=== PATIENT | male | born 1985 | race African-American/Black ===

== ENCOUNTER 2017-04-10 04:26 | Emergency (ER) | payer SELFPAY ==
[2017-04-10 05:26] LABS: BASOPHILS 0.2 % (0-2); EOSINOPHILS 3.1 % (0-7); HEMATOCRIT 41.1 % (42.0-54.0); HEMOGLOBIN 13.5 g/dL (13.5-17.5); IMMATURE GRANULOCYTES 0.2 % (0-5); LYMPHOCYTES 31.3 % (15-50); MCH 27.4 pg (26.0-34.0); MCHC 32.8 g/dL (31.0-37.0); MCV 83.4 fL (80.0-100.0); MEAN PLATELET VOLUME 9.1 fL (7.4-10.4); MONOCYTES 7.3 % (2-11); NEUTROPHILS 57.9 % (40-80); PLATELET COUNT 262 10x3/uL (130-400); RBC 4.93 10x6/uL (4.20-6.10); RDW 14.5 % (11.5-14.5); WBC 5.5 10x3/uL (4.8-10.8)
[2017-04-10 05:38] LABS: ALBUMIN 3.8 g/dL (3.4-5.0); ANION GAP 13.8 mmol/L (8-16); BILIRUBIN - TOTAL 0.22 mg/dL (0.2-1.3); CALCIUM 9.4 mg/dL (8.5-10.1); CARBON DIOXIDE 24.9 mmol/L (21.0-32.0); CREATININE - SERUM 1.3 mg/dL (0.6-1.3); POTASSIUM - SERUM 3.7 mmol/L (3.5-5.1); PROTEIN - SERUM 7.4 g/dL (6.4-8.2)
== END 2017-04-10 06:00 | disposition home or self-care (01) ==
LOC: D.ER 04:26
PROVIDERS: Emergency Medicine
DX: E11.65 Type 2 diabetes mellitus with hyperglycemia (principal); F17.200 Nicotine dependence, unspecified, uncomplicated

== ENCOUNTER 2017-09-12 02:53 | Emergency (ER) | payer MEDICAID ==
[2017-09-12 03:22] LABS: BASOPHILS 0.2 % (0-2); HEMATOCRIT 43.4 % (42.0-54.0); HEMOGLOBIN 14.4 g/dL (13.5-17.5); IMMATURE GRANULOCYTES 0.2 % (0-5); LYMPHOCYTES 31.1 % (15-50); MCH 27.2 pg (26.0-34.0); MCHC 33.2 g/dL (31.0-37.0); MEAN PLATELET VOLUME 9.1 fL (7.4-10.4); MONOCYTES 9.4 % (2-11); NEUTROPHILS 54.1 % (40-80); PLATELET COUNT 322 10x3/uL (130-400); RBC 5.29 10x6/uL (4.20-6.10); RDW 14.9 % (11.5-14.5)
[2017-09-12 03:26] LABS: APPEARANCE CLEAR (CLEAR); COLOR YELLOW (YELLOW); NITRITE NEGATIVE (NEGATIVE); SPECIFIC GRAVITY 1.025 (1.005-1.020)
[2017-09-12 03:27] LABS: BILIRUBIN NEGATIVE (NEGATIVE); GLUCOSE NEGATIVE (NEGATIVE); KETONE NEGATIVE (NEGATIVE); PROTEIN NEGATIVE (NEGATIVE); UROBILINOGEN NORMAL (NORMAL)
[2017-09-12 03:28] LABS: BACTERIA FEW /hpf (NONE SEEN); EPITHELIAL CELLS 0-5 /hpf (0-5); RED CELLS - URINE 0-5 /hpf (0-5); WHITE CELLS - URINE NSEEN /hpf (0-5)
[2017-09-12 03:58] LABS: ALBUMIN 3.7 g/dL (3.4-5.0); ALKALINE PHOSPHATASE 90 U/L (46-116); ALT (SGPT) 32 U/L (10-68); BILIRUBIN - TOTAL 0.12 mg/dL (0.2-1.3); CALC OSMOLALITY 274 mosm/kg (275-300); CALCIUM 8.9 mg/dL (8.5-10.1); CARBON DIOXIDE 26.2 mmol/L (21.0-32.0); CHLORIDE - SERUM 101 mmol/L (98-107); CREATININE - SERUM 1.1 mg/dL (0.6-1.3); GLUCOSE 112 mg/dL (74-106); LIPASE 287 U/L (73-393); PROTEIN - SERUM 7.3 g/dL (6.4-8.2); SODIUM 136 mmol/L (136-145); UREA NITROGEN 18 mg/dL (7-18); eGFR NON AFRICAN AMERICAN 83 mL/min (90-120)
== END 2017-09-12 06:44 | disposition home or self-care (01) ==
LOC: D.ER 02:53
PROVIDERS: Emergency Medicine
DX: R10.9 Unspecified abdominal pain (principal); E11.9 Type 2 diabetes mellitus without complications

== ENCOUNTER 2017-09-17 08:38 | Emergency (ER) | payer MEDICAID ==
[2017-09-17 09:52] LABS: APPEARANCE CLEAR (CLEAR); BACTERIA FEW /hpf (NONE SEEN); BILIRUBIN NEGATIVE (NEGATIVE); COLOR YELLOW (YELLOW); EPITHELIAL CELLS OCC /hpf (0-5); GLUCOSE NEGATIVE (NEGATIVE); KETONE NEGATIVE (NEGATIVE); MUCUS <1+ /lpf (NONE SEEN); NITRITE NEGATIVE (NEGATIVE); PROTEIN NEGATIVE (NEGATIVE); RED CELLS - URINE 0-5 /hpf (0-5); UROBILINOGEN NORMAL (NORMAL); WHITE CELLS - URINE OCC /hpf (0-5)
[2017-09-17 10:01] LABS: BASOPHILS 0.2 % (0-2); EOSINOPHILS 2.9 % (0-7); HEMATOCRIT 42.9 % (42.0-54.0); HEMOGLOBIN 14.1 g/dL (13.5-17.5); IMMATURE GRANULOCYTES 0.2 % (0-5); MCH 27.3 pg (26.0-34.0); MCHC 32.9 g/dL (31.0-37.0); MCV 83.1 fL (80.0-100.0); MEAN PLATELET VOLUME 9.4 fL (7.4-10.4); MONOCYTES 14.3 % (2-11); NEUTROPHILS 52.4 % (40-80); PLATELET COUNT 244 10x3/uL (130-400); RBC 5.16 10x6/uL (4.20-6.10); RDW 14.9 % (11.5-14.5); WBC 4.1 10x3/uL (4.8-10.8)
[2017-09-17 10:15] LABS: ALBUMIN 3.7 g/dL (3.4-5.0); ALKALINE PHOSPHATASE 96 U/L (46-116); ALT (SGPT) 35 U/L (10-68); CALC OSMOLALITY 274 mosm/kg (275-300); CALCIUM 8.7 mg/dL (8.5-10.1); CARBON DIOXIDE 23.9 mmol/L (21.0-32.0); CHLORIDE - SERUM 103 mmol/L (98-107); GLUCOSE 94 mg/dL (74-106); POTASSIUM - SERUM 4.4 mmol/L (3.5-5.1); PROTEIN - SERUM 6.8 g/dL (6.4-8.2); SODIUM 137 mmol/L (136-145); UREA NITROGEN 16 mg/dL (7-18); eGFR NON AFRICAN AMERICAN > 90 mL/min (90-120)
== END 2017-09-17 10:58 | disposition home or self-care (01) ==
LOC: D.ER 08:38
PROVIDERS: Family Medicine
DX: I10 Essential (primary) hypertension (principal); E11.9 Type 2 diabetes mellitus without complications

== ENCOUNTER 2018-06-15 02:33 | Inpatient (IN) | payer MEDICAID ==
[~2018-06-15] VITALS: Ht 167.6 cm; Wt 81.6 kg
[2018-06-15 03:08] LABS: BASOPHILS 0.4 % (0-2); EOSINOPHILS 6.3 % (0-7); HEMATOCRIT 39.4 % (42.0-54.0); HEMOGLOBIN 13.1 g/dL (13.5-17.5); IMMATURE GRANULOCYTES 0.2 % (0-5); LYMPHOCYTES 44.1 % (15-50); MCH 27.5 pg (26.0-34.0); MCHC 33.2 g/dL (31.0-37.0); MCV 82.8 fL (80.0-100.0); MONOCYTES 8.5 % (2-11); NEUTROPHILS 40.5 % (40-80); PLATELET COUNT 259 10x3/uL (130-400); RBC 4.76 10x6/uL (4.20-6.10); RDW 14.8 % (11.5-14.5); WBC 5.6 10x3/uL (4.8-10.8)
[2018-06-15 03:22] LABS: ALBUMIN 3.3 g/dL (3.4-5.0); ANION GAP 7.6 mmol/L (8-16); BILIRUBIN - TOTAL 0.16 mg/dL (0.2-1.3); CALCIUM 8.2 mg/dL (8.5-10.1); CARBON DIOXIDE 28.6 mmol/L (21.0-32.0); CREATININE - SERUM 1.3 mg/dL (0.6-1.3); POTASSIUM - SERUM 4.2 mmol/L (3.5-5.1); PROTEIN - SERUM 6.5 g/dL (6.4-8.2)
[2018-06-15 03:48] LABS: COLOR YELLOW (YELLOW)
[2018-06-15 03:49] LABS: APPEARANCE CLEAR (CLEAR); BILIRUBIN NEGATIVE (NEGATIVE); GLUCOSE NEGATIVE (NEGATIVE); KETONE SMALL mg/dL (NEGATIVE); NITRITE NEGATIVE (NEGATIVE); PROTEIN NEGATIVE (NEGATIVE); UROBILINOGEN NORMAL (NORMAL)
[2018-06-15 03:53] LABS: UDS - AMPHET POSITIVE QUAL (NEGATIVE); UDS - BARB NEGATIVE QUAL (NEGATIVE); UDS - BENZO NEGATIVE QUAL (NEGATIVE); UDS - COCAINE POSITIVE QUAL (NEGATIVE); UDS - OPIATE POSITIVE QUAL (NEGATIVE); UDS - PCP NEGATIVE QUAL (NEGATIVE); UDS - THC POSITIVE QUAL (NEGATIVE)
[2018-06-15 04:00] VITALS: BP 129/69
[2018-06-15 05:15] VITALS: BP 104/75; BMI 29.1
[2018-06-15 05:30] VITALS: BP 104/75
[2018-06-15 08:46] VITALS: BP 111/54
[2018-06-15 12:20] VITALS: BMI 29.0
[2018-06-15 16:38] VITALS: BP 127/72
[2018-06-15 20:00] VITALS: BP 115/72
[2018-06-16] VITALS: BP 125/60
[2018-06-16 04:17] VITALS: BP 104/47
[2018-06-16 05:04] LABS: BASOPHILS 0.2 % (0-2); EOSINOPHILS 6.7 % (0-7); HEMATOCRIT 39.9 % (42.0-54.0); HEMOGLOBIN 13.2 g/dL (13.5-17.5); IMMATURE GRANULOCYTES 0.2 % (0-5); LYMPHOCYTES 42.6 % (15-50); MCH 27.3 pg (26.0-34.0); MCHC 33.1 g/dL (31.0-37.0); MCV 82.6 fL (80.0-100.0); MEAN PLATELET VOLUME 9.3 fL (7.4-10.4); MONOCYTES 8.3 % (2-11); PLATELET COUNT 301 10x3/uL (130-400); RBC 4.83 10x6/uL (4.20-6.10); RDW 14.7 % (11.5-14.5); WBC 5.1 10x3/uL (4.8-10.8)
[2018-06-16 05:32] LABS: ALBUMIN 2.8 g/dL (3.4-5.0); ALKALINE PHOSPHATASE 81 U/L (46-116); BILIRUBIN - TOTAL 0.12 mg/dL (0.2-1.3); CALCIUM 7.6 mg/dL (8.5-10.1); CARBON DIOXIDE 26.2 mmol/L (21.0-32.0); CHLORIDE - SERUM 108 mmol/L (98-107); CHOLESTEROL, TOTAL 104 mg/dL (0-200); CREATININE - SERUM 1.2 mg/dL (0.6-1.3); GLUCOSE 127 mg/dL (74-106); HDL CHOLESTEROL 35 mg/dL (32-96); LDL CHOLESTEROL 38 mg/dL (0-100); LDL-HDL RATIO 1.1 ratio (1.5-3.5); LIPASE 268 U/L (73-393); POTASSIUM - SERUM 3.9 mmol/L (3.5-5.1); PROTEIN - SERUM 5.6 g/dL (6.4-8.2); SODIUM 140 mmol/L (136-145); TRIGLYCERIDE 155 mg/dL (30-200); eGFR NON AFRICAN AMERICAN 75 mL/min (90-120)
[2018-06-16 05:36] LABS: ALT (SGPT) 77 U/L (10-68); AMYLASE - SERUM 58 U/L (25-115); CALC OSMOLALITY 279 mosm/kg (275-300); UREA NITROGEN 9 mg/dL (7-18)
[2018-06-16 20:00] VITALS: BP 127/84
[2018-06-17 05:21] LABS: ALBUMIN 3.1 g/dL (3.4-5.0); ALKALINE PHOSPHATASE 84 U/L (46-116); ALT (SGPT) 70 U/L (10-68); BILIRUBIN - TOTAL 0.11 mg/dL (0.2-1.3); CALC OSMOLALITY 278 mosm/kg (275-300); CALCIUM 8.1 mg/dL (8.5-10.1); CARBON DIOXIDE 29.5 mmol/L (21.0-32.0); CHLORIDE - SERUM 106 mmol/L (98-107); CREATININE - SERUM 1.1 mg/dL (0.6-1.3); GLUCOSE 111 mg/dL (74-106); LIPASE 602 U/L (73-393); POTASSIUM - SERUM 4.4 mmol/L (3.5-5.1); PROTEIN - SERUM 5.9 g/dL (6.4-8.2); SODIUM 140 mmol/L (136-145); UREA NITROGEN 11 mg/dL (7-18); eGFR NON AFRICAN AMERICAN 83 mL/min (90-120)
[2018-06-17 05:22] LABS: AMYLASE - SERUM 74 U/L (25-115); BASOPHILS 0.4 % (0-2); EOSINOPHILS 7.7 % (0-7); HEMOGLOBIN 13.7 g/dL (13.5-17.5); IMMATURE GRANULOCYTES 0.2 % (0-5); LYMPHOCYTES 39.9 % (15-50); MCH 27.6 pg (26.0-34.0); MCHC 33.4 g/dL (31.0-37.0); MCV 82.5 fL (80.0-100.0); MEAN PLATELET VOLUME 9.5 fL (7.4-10.4); MONOCYTES 7.6 % (2-11); NEUTROPHILS 44.2 % (40-80); PLATELET COUNT 304 10x3/uL (130-400); RBC 4.97 10x6/uL (4.20-6.10); RDW 14.6 % (11.5-14.5); WBC 5.4 10x3/uL (4.8-10.8)
[2018-06-17 05:28] VITALS: BP 130/87
[2018-06-17 09:21] VITALS: BP 118/69
[2018-06-17 11:57] VITALS: BP 112/53
[2018-06-17 17:49] VITALS: BP 130/76
[2018-06-17 18:00] VITALS: Ht 167.6 cm; Wt 81.6 kg
[2018-06-17 20:00] VITALS: BP 136/69
[2018-06-18] VITALS (9 sets, daily range): BP systolic 125–147; BP diastolic 62–85
[2018-06-18 06:39] LABS: BASOPHILS 0.2 % (0-2); EOSINOPHILS 8.5 % (0-7); HEMATOCRIT 44.6 % (42.0-54.0); HEMOGLOBIN 14.8 g/dL (13.5-17.5); IMMATURE GRANULOCYTES 0.2 % (0-5); LYMPHOCYTES 40.2 % (15-50); MCH 27.4 pg (26.0-34.0); MCHC 33.2 g/dL (31.0-37.0); MCV 82.6 fL (80.0-100.0); MEAN PLATELET VOLUME 9.3 fL (7.4-10.4); MONOCYTES 6.8 % (2-11); NEUTROPHILS 44.1 % (40-80); PLATELET COUNT 298 10x3/uL (130-400); RDW 14.9 % (11.5-14.5)
[2018-06-18 07:03] LABS: ALBUMIN 3.2 g/dL (3.4-5.0); ALKALINE PHOSPHATASE 86 U/L (46-116); ALT (SGPT) 56 U/L (10-68); AMYLASE - SERUM 74 U/L (25-115); BILIRUBIN - TOTAL 0.12 mg/dL (0.2-1.3); CALC OSMOLALITY 277 mosm/kg (275-300); CALCIUM 8.3 mg/dL (8.5-10.1); CARBON DIOXIDE 27.2 mmol/L (21.0-32.0); CHLORIDE - SERUM 102 mmol/L (98-107); CREATININE - SERUM 1.2 mg/dL (0.6-1.3); GLUCOSE 102 mg/dL (74-106); LIPASE 300 U/L (73-393); POTASSIUM - SERUM 4.1 mmol/L (3.5-5.1); PROTEIN - SERUM 6.7 g/dL (6.4-8.2); SODIUM 139 mmol/L (136-145); UREA NITROGEN 12 mg/dL (7-18); eGFR NON AFRICAN AMERICAN 75 mL/min (90-120)
[2018-06-18] MEDS ORDERED: HYDROCODON-ACE1 EAC7 PO (13:37)
[2018-06-18] MEDS ORDERED: PROTONIX40 MG PO (13:44)
[2018-06-19] VITALS: BP 137/69
[2018-06-19 04:00] VITALS: BP 129/62
[2018-06-19 07:12] LABS: BASOPHILS 0.1 % (0-2); EOSINOPHILS 0.2 % (0-7); HEMATOCRIT 43.2 % (42.0-54.0); HEMOGLOBIN 14.5 g/dL (13.5-17.5); IMMATURE GRANULOCYTES 0.3 % (0-5); LYMPHOCYTES 16.2 % (15-50); MCH 27.4 pg (26.0-34.0); MCHC 33.6 g/dL (31.0-37.0); MCV 81.5 fL (80.0-100.0); MEAN PLATELET VOLUME 9.5 fL (7.4-10.4); MONOCYTES 6.7 % (2-11); NEUTROPHILS 76.5 % (40-80); PLATELET COUNT 288 10x3/uL (130-400); RDW 14.8 % (11.5-14.5)
[2018-06-19 07:18] LABS: WBC 9.1 10x3/uL (4.8-10.8)
[2018-06-19 07:41] LABS: ALBUMIN 3.2 g/dL (3.4-5.0); ALKALINE PHOSPHATASE 103 U/L (46-116); AMYLASE - SERUM 59 U/L (25-115); CALC OSMOLALITY 273 mosm/kg (275-300); CALCIUM 8.2 mg/dL (8.5-10.1); CARBON DIOXIDE 28.2 mmol/L (21.0-32.0); CHLORIDE - SERUM 103 mmol/L (98-107); CREATININE - SERUM 1.2 mg/dL (0.6-1.3); GLUCOSE 118 mg/dL (74-106); LIPASE 162 U/L (73-393); POTASSIUM - SERUM 3.9 mmol/L (3.5-5.1); PROTEIN - SERUM 6.5 g/dL (6.4-8.2); SODIUM 137 mmol/L (136-145); UREA NITROGEN 11 mg/dL (7-18); eGFR NON AFRICAN AMERICAN 75 mL/min (90-120)
[2018-06-19 07:43] LABS: ALT (SGPT) 206 U/L (10-68)
[2018-06-19 09:56] VITALS: BP 155/86
== END 2018-06-19 12:00 | disposition home or self-care (01) | DRG 418 ==
LOC: D.ER 02:33 → D.EDHOLD 03:58 → D.MS 03:58
PROVIDERS: Emergency Medicine; Family Medicine; Surgery
PROC: BF121ZZ Fluoroscopy of Gallbladder using Low Osmolar Contrast (ICD-10-PCS; 2018-06-18)
PROC: 0FT44ZZ Resection of Gallbladder, Percutaneous Endoscopic Approach (ICD-10-PCS; principal; 2018-06-18 10:15)
DX: K80.10 Calculus of gallbladder with chronic cholecystitis without obstruction (principal); F17.203 Nicotine dependence unspecified, with withdrawal; K21.9 Gastro-esophageal reflux disease without esophagitis; E86.0 Dehydration; F19.10 Other psychoactive substance abuse, uncomplicated

== ENCOUNTER 2019-03-24 07:14 | Observation (INO) | payer MEDICAID ==
[~2019-03-24] VITALS: Ht 167.6 cm; Wt 81.6 kg
[~2019-03-24 07:14] MED LIST: HYDROCODON-ACE1 EAC7 PO; PROTONIX40 MG PO
--- NOTE | 2019-03-24 07:45 | NUR ---
PT GIVEN SPECIMEN CUP AND ASKED TO PROVIDE URINE SAMPLE FOR ORDERED LABS. PT VOICED UNDERSTANDING.
[2019-03-24 08:00] VITALS: BP 113/71
--- NOTE | 2019-03-24 08:13 | NUR ---
BLANKET PROVIDED FOR PT'S COMFORT. PT DENIES FURTHER NEEDS AT THIS TIME. WILL CONTINUE TO MONITOR.
[2019-03-24 08:17] LABS: BASOPHILS 0.3 % (0-2); HEMATOCRIT 42.1 % (42.0-54.0); HEMOGLOBIN 14.2 g/dL (13.5-17.5); IMMATURE GRANULOCYTES 0.2 % (0-5); LYMPHOCYTES 30.2 % (15-50); MCH 27.5 pg (26.0-34.0); MCHC 33.7 g/dL (31.0-37.0); MCV 81.4 fL (80.0-100.0); MEAN PLATELET VOLUME 9.1 fL (7.4-10.4); NEUTROPHILS 56.3 % (40-80); PLATELET COUNT 275 10x3/uL (130-400); RBC 5.17 10x6/uL (4.20-6.10)
[2019-03-24 08:30] LABS: ALBUMIN 3.3 g/dL (3.4-5.0); ANION GAP 13.4 mmol/L (8-16); BILIRUBIN - TOTAL 0.15 mg/dL (0.2-1.3); CALCIUM 8.5 mg/dL (8.5-10.1); CARBON DIOXIDE 24.9 mmol/L (21.0-32.0); CREATININE - SERUM 1.2 mg/dL (0.6-1.3); POTASSIUM - SERUM 4.3 mmol/L (3.5-5.1); PROTEIN - SERUM 6.6 g/dL (6.4-8.2)
[2019-03-24 08:36] LABS: TROPONIN-I 0.026 ng/mL (0.000-0.060)
--- NOTE | 2019-03-24 08:44 | NUR ---
PT LYING IN BED, RESPIRATIONS EVEN AND UNLABORED. NO SIGNS OF DISTRES. FAMILY MEMBER AT THE BEDSIDE. PT DENIES ANY IMPROVMENT OF SYMPTOMS FOLLOWING ORDERED MEDICATION. EDP NOTIFIED.
--- NOTE | 2019-03-24 09:42 | NUR ---
PT STATES THAT PAIN REMAINS 8/10, HOWEVER FOLLOWING ADMINISTERED MORPHINE, PT'S INTERMITTENT PAIN, HAS BECOME MORE FREQUENT.
--- NOTE | 2019-03-24 09:55 | NUR ---
PT TAKEN TO [facility] FOR ORDERED CT SCAN. TRANSPORTED VIA STRETCHER.
[2019-03-24 09:57] LABS: APPEARANCE CLEAR (CLEAR); COLOR STRAW (YELLOW)
[2019-03-24 09:58] LABS: BILIRUBIN NEGATIVE (NEGATIVE); GLUCOSE NEGATIVE (NEGATIVE); KETONE NEGATIVE (NEGATIVE); NITRITE NEGATIVE (NEGATIVE); PROTEIN NEGATIVE (NEGATIVE); UROBILINOGEN NORMAL (NORMAL)
--- NOTE | 2019-03-24 10:07 | NUR ---
PT RETURNED TO THE ED AT THIS TIME.
--- NOTE | 2019-03-24 10:46 | NUR ---
PT CONTINUES TO C/O PAIN, EDP WAS NOTIFIED THAT PT STATED NO RELIEF WITH GI COCKTAIL, AND THAT PAIN WAS "WORSE" FOLLOWING IVP MORPHINE. ATTEMPTED TO ADJUST HOB, LIGHTS DIMMED FOR COMFORT.
--- NOTE | 2019-03-24 11:12 | NUR ---
WHILE ADMINISTERING ORDERED IVP FENTANYL, PT BEGAN SNORING WITH EYES CLOSED AND APPEARED TO BE SLEEPING. THIS NURSE THEN ASKED PT IF HE WAS EXPERIENCING ANY RELIEF FROM HIS PAIN, PT STATED "NO, IT'S NOT ANY DIFFERENT." CALL LIGHT IN REACH, PT LYING IN BED WITH EYES CLOSED. NO SIGNS OF DISTRESS. WILL CONTINUE TO MONITOR.
[2019-03-24 12:36] VITALS: BMI 29.1
[2019-03-24 12:58] VITALS: BP 113/74
[2019-03-24 18:37] VITALS: BP 113/51
[2019-03-24 19:02] VITALS: BP 113/71
--- NOTE | 2019-03-24 20:10 | NUR ---
PATIENT AMBULATING AROUND ROOM AND REQUESTED A DRINK. PATIENT DENIES OTHER NEEDS AT THIS TIME. BED IN LOWEST POSITION AND CALL LIGHT WITHIN REACH. ENCOURAGED THE PATIENT TO CALL IF HE HAS NEEDS. WILL CONTINUE TO MONITOR.
[2019-03-24 22:14] VITALS: BP 129/73
[2019-03-25 00:54] VITALS: BP 115/56
[2019-03-25 05:25] VITALS: BP 139/81
[2019-03-25 06:55] LABS: BASOPHILS 0.3 % (0-2); EOSINOPHILS 8.3 % (0-7); HEMATOCRIT 41.3 % (42.0-54.0); HEMOGLOBIN 13.7 g/dL (13.5-17.5); IMMATURE GRANULOCYTES 0.3 % (0-5); LYMPHOCYTES 45.4 % (15-50); MCH 26.8 pg (26.0-34.0); MCHC 33.2 g/dL (31.0-37.0); MCV 80.7 fL (80.0-100.0); MEAN PLATELET VOLUME 9.2 fL (7.4-10.4); NEUTROPHILS 37.7 % (40-80); PLATELET COUNT 276 10x3/uL (130-400); RBC 5.12 10x6/uL (4.20-6.10); RDW 14.8 % (11.5-14.5)
[2019-03-25 07:07] LABS: WBC 3.5 10x3/uL (4.8-10.8)
[2019-03-25 07:11] LABS: ALBUMIN 3.1 g/dL (3.4-5.0); ALKALINE PHOSPHATASE 80 U/L (46-116); AMYLASE - SERUM 55 U/L (25-115); BILIRUBIN - TOTAL 0.29 mg/dL (0.2-1.3); CALCIUM 8.3 mg/dL (8.5-10.1); CARBON DIOXIDE 26.9 mmol/L (21.0-32.0); CHLORIDE - SERUM 107 mmol/L (98-107); CHOL - HDL RATIO 2.9 ratio (2.3-4.9); CHOLESTEROL, TOTAL 109 mg/dL (0-200); CREATININE - SERUM 1.1 mg/dL (0.6-1.3); GLUCOSE 92 mg/dL (74-106); HDL CHOLESTEROL 38 mg/dL (32-96); LDL CHOLESTEROL 57 mg/dL (0-100); LDL-HDL RATIO 1.5 ratio (1.5-3.5); LIPASE 154 U/L (73-393); MAGNESIUM - SERUM 2.2 mg/dL (1.8-2.4); PHOSPHOROUS 3.1 mg/dL (2.5-4.9); POTASSIUM - SERUM 3.9 mmol/L (3.5-5.1); PROTEIN - SERUM 6.1 g/dL (6.4-8.2); SODIUM 141 mmol/L (136-145); TRIGLYCERIDE 74 mg/dL (30-200); eGFR NON AFRICAN AMERICAN 82 mL/min (90-120)
[2019-03-25 07:13] LABS: ALT (SGPT) 100 U/L (10-68); CALC OSMOLALITY 279 mosm/kg (275-300); UREA NITROGEN 9 mg/dL (7-18)
[2019-03-25 08:00] VITALS: BP 136/83
--- NOTE | 2019-03-25 11:20 | MORECARE ---
CASE MANAGEMENT DISCHARGE SUMMARY PATIENT: BRANDY MATIAS UNIT: [id number] ADM DATE: 03/24/19 AGE: 33 : [birth year] SEX: M ROOM/BED: D.1203 AUTHOR: YAZMIN GEORGES PHYSICIAN: REFERRING PHYSICIAN: MARIO MARMOLEJO MD DATE OF SERVICE: 03/25/19 Discharge Plan Patient Name: BRANDY MATIAS Facility: [facility]:[place] : 1985 Planned Disposition: Anticipated Discharge Date: Discharge Date: Expected LOS: Initial Reviewer: [email or web address] Initial Review Date: 03/25/2019 Generated: 03/25/19 12:20 pm Comments DCP- Discharge Planning Updated by JARED: Tete Chatterjee on 03/25/19 10:[address] Patient Name: BRANDY MATIAS Admission Status: ER Accout number: [id number] Admission Date: 03-24-2019 : 1985 Admission Diagnosis: Attending: MARIO MARMOLEJO Current LOS: 1 Anticipated DC Date: Planned Disposition: Primary Insurance: MEDICAID [place] PENDING Discharge Planning Comments: CM met with patient to complete initial dc planning assessment. CM educated patient on the CM role and verbal consent given by patient to complete assessment. CM verified patient's address, phone number, and emergency contact phone numbers. Patient lives at home and reports He is independent in HIS care. At discharge patient plans to return home and feels this is a safe discharge. CM discussed availability of home health, rehab services, and medical equipment. Patient denied known discharge needs at this time.. CM will continue to follow and will assist as needed with dc plans/needs. Pigskin Trimmer: Tete Chatterjee Patient Name: BRANDY MATIAS Page [id number] at 1120 All edits/amendments must be made on the electronic document DICTATION DATE: 03/25/19 111 LOOM STARTER: BRIONNA 03/25/19 1119 RPT#: [id number] DC DATE: STATUS: ADM IN [facility] [address] [id number] END OF REPORT
[2019-03-25 12:31] VITALS: BP 138/76
[2019-03-25 13:01] VITALS: Ht 167.6 cm; Wt 81.6 kg
[2019-03-25 18:25] VITALS: BP 135/77
--- NOTE | 2019-03-25 19:02 | NUR ---
REPORT RECEIVED, CARE ASSUMED. PT IS AMBULATING AT THIS TIME. NO NEEDS NOTED/VOICED. NO SIGNS OF ACUTE DISTRESS. SHIFT ASSESSMENT COMPLETED AT THIS TIME, SEE FLOWSHEET FOR DETAILS. WILL CONTINUE TO MONITOR.
[2019-03-25 20:00] VITALS: BP 107/58
[2019-03-26 04:00] VITALS: BP 130/93
[2019-03-26 07:28] LABS: BASOPHILS 0.5 % (0-2); EOSINOPHILS 9.3 % (0-7); HEMATOCRIT 42.1 % (42.0-54.0); HEMOGLOBIN 14.2 g/dL (13.5-17.5); IMMATURE GRANULOCYTES 0.2 % (0-5); LYMPHOCYTES 46.7 % (15-50); MCH 27.3 pg (26.0-34.0); MCHC 33.7 g/dL (31.0-37.0); MCV 80.8 fL (80.0-100.0); MEAN PLATELET VOLUME 9.3 fL (7.4-10.4); MONOCYTES 7.8 % (2-11); NEUTROPHILS 35.5 % (40-80); PLATELET COUNT 277 10x3/uL (130-400); RBC 5.21 10x6/uL (4.20-6.10); RDW 14.9 % (11.5-14.5); WBC 4.1 10x3/uL (4.8-10.8)
[2019-03-26 07:46] LABS: ALBUMIN 3.1 g/dL (3.4-5.0); ALKALINE PHOSPHATASE 83 U/L (46-116); BILIRUBIN - TOTAL 0.13 mg/dL (0.2-1.3); CALC OSMOLALITY 279 mosm/kg (275-300); CALCIUM 8.1 mg/dL (8.5-10.1); CARBON DIOXIDE 26.2 mmol/L (21.0-32.0); CHLORIDE - SERUM 106 mmol/L (98-107); GLUCOSE 107 mg/dL (74-106); LIPASE 263 U/L (73-393); PROTEIN - SERUM 6.3 g/dL (6.4-8.2); SODIUM 141 mmol/L (136-145); UREA NITROGEN 11 mg/dL (7-18); eGFR NON AFRICAN AMERICAN > 90 mL/min (90-120)
[2019-03-26 07:47] LABS: ALT (SGPT) 72 U/L (10-68)
--- NOTE | 2019-03-26 08:00 | NUR ---
PATIENT UP AT NURSING STATION. REQUEST THAT HIS IV BE TAKEN OUT. IV PLACED IN RIGHT WRIST. BEFORE CRIMINOLOGY TEACHER LEFT. THIS NURSE EXPLAINED NEED TO KEEP IN. PATIENT STATED HE WANTED IT OUT. IV REMOVED.
[2019-03-26 08:30] VITALS: BP 138/79
--- NOTE | 2019-03-26 09:00 | NUR ---
DR TIPTON CALLED IN REGARDS TO PATIENT NOT WANTING TO GIVE URINE SAMPLE. DR TIPTON STATED, I DID'T THINK HE WOULD, I KNOW WHAT TO DO
--- NOTE | 2019-03-26 10:02 | NUR ---
DR WILLINGHAM NOTIFED THAT PATIENT IS REFUSING TO GIVE A URINE SAMPLE.
[2019-03-26 12:18] VITALS: BP 125/76
--- NOTE | 2019-03-26 13:47 | NUR ---
DISCHARGE ORDERS WRITTEN. THIS NURSE WENT OVER DISCHARGE INSTRUCTIONS WITH PATIENT AND PATIENTS GIRLFRIEND
--- NOTE | 2019-03-27 08:22 | MORECARE ---
CASE MANAGEMENT DISCHARGE SUMMARY PATIENT: BRANDY MATIAS UNIT: [id number] ADM DATE: 03/24/19 AGE: 33 : [birth year] SEX: M ROOM/BED: D.1203 AUTHOR: YAZMIN GEORGES PHYSICIAN: REFERRING PHYSICIAN: MARIO MARMOLEJO MD DATE OF SERVICE: 03/27/19 Discharge Plan Patient Name: BRANDY MATIAS Facility: [facility]:[place] : 1985 Planned Disposition: Anticipated Discharge Date: Discharge Date: 03/26/2019 Expected LOS: Initial Reviewer: [email or web address] Initial Review Date: 03/25/2019 Generated: 03/27/19 9:22 am Comments DCP- Discharge Planning Updated by JARED: Tete Chatterjee on 03/25/19 10:[address] Patient Name: BRANDY MATIAS Admission Status: ER Accout number: [id number] Admission Date: 03-24-2019 : 1985 Admission Diagnosis: Attending: MARIO MARMOLEJO Current LOS: 1 Anticipated DC Date: Planned Disposition: Primary Insurance: MEDICAID [place] PENDING Discharge Planning Comments: CM met with patient to complete initial dc planning assessment. CM educated patient on the CM role and verbal consent given by patient to complete assessment. CM verified patient's address, phone number, and emergency contact phone numbers. Patient lives at home and reports He is independent in HIS care. At discharge patient plans to return home and feels this is a safe discharge. CM discussed availability of home health, rehab services, and medical equipment. Patient denied known discharge needs at this time.. CM will continue to follow and will assist as needed with dc plans/needs. Safety And Skill Based Pay Manager: Tete Chatterjee Last DP export: 03/25/19 10:20 a Patient Name: BRANDY MATIAS Page [phone] at 0822 All edits/amendments must be made on the electronic document DICTATION DATE: 03/27/19820 MANAGER FRENCH: BRIONNA 03/27/19820 RPT#: [id number] DC DATE:03/26/19 STATUS: DIS IN [facility] [address] [place] [address] END OF REPORT
[2019-03-27 09:13] LABS: HEPATITIS C ANTIBODY <0.1 (0.0-0.9)
[2019-03-27 20:06] LABS: IGG SUBCLASS 1 516 mg/dL (248-810); IGG SUBCLASS 2 212 mg/dL (130-555); IGG SUBCLASS 3 44 mg/dL (15-102); IGG SUBCLASS 4 72 mg/dL (2-96)
== END 2019-03-26 14:13 | disposition home or self-care (01) ==
LOC: D.ER 07:14 → D.M3 11:23 → OBSVTIME 11:30 → D.M3 03-26 14:13
PROVIDERS: Family Medicine; Internal Medicine Gastroenterology; ADMIT Internal Medicine Nephrology; ATTEND Internal Medicine Nephrology
DX: K85.90 Acute pancreatitis without necrosis or infection, unspecified (principal); F17.213 Nicotine dependence, cigarettes, with withdrawal; F12.90 Cannabis use, unspecified, uncomplicated

== ENCOUNTER 2019-10-23 20:56 | Emergency (ER) | payer MEDICAID ==
[~2019-10-23] VITALS: Ht 167.6 cm; Wt 81.8 kg
[2019-10-23 21:14] VITALS: BP 131/72; Ht 167.6 cm; Wt 81.8 kg
[2019-10-23] MEDS ORDERED: TAMIFLU75 MG PO (22:23)
[2019-10-23] MEDS ORDERED: VOLTAREN75 MG PO (22:23)
[2019-10-23] MEDS ORDERED: MUCINEX DM ER1 EAC1 PO (22:23)
== END 2019-10-23 23:37 | disposition home or self-care (01) ==
LOC: D.ER 20:56
DX: J11.1 Influenza due to unidentified influenza virus with other respiratory manifestations (principal); R52 Pain, unspecified; Z72.0 Tobacco use